=== PATIENT | male | born 1985 | race African-American/Black ===

== ENCOUNTER 2018-06-10 05:58 | Day surgery (SDC) | payer OTHER ==
[~2018-06-10] VITALS: Ht 188 cm; Wt 93.0 kg
--- NOTE | ~2018-06-10 | OP ---
PATIENT NAME: NALDO GONZALEZ MEDICAL RECORD: [id number] [facility]: SURGEON: CLAUDIA ALLISON MD DATE OF OPERATION: 06/10/2018 PREOPERATIVE DIAGNOSIS: Symptomatic reducible right inguinal hernia. POSTOPERATIVE DIAGNOSIS: Symptomatic reducible right indirect inguinal hernia. PROCEDURE: Open right indirect inguinal hernia, reducible, with bilayered polypropylene mesh. SURGEON: Claudia Allison MD GOVERNMENT AFFAIRS MANAGER: None. BLOOD LOSS: Minimal. ANESTHESIA: General. COMPLICATIONS: None. The risks, possible complications and alternatives to the procedure were explained to the patient. He elects to proceed. The discussion specifically included, but was not limited to, bleeding requiring an emergency reoperation, pseudo sac hematoma or seroma formation, chronic pain, hernia recurrence, mesh infection. OPERATIVE COURSE: The patient was conveyed to the operating room electively on 06/10/2018. General anesthesia was induced by the anesthesia staff. General anesthesia was induced by the anesthesia staff. The abdomen and genitals were sterilely prepped and draped. A transverse incision was accomplished in the right groin. Sharp dissection was carried down through skin and subcutaneous tissue as well as Harsha fascia. The external oblique aponeurosis was then incised along the direction of its fibers. I bluntly dissected down through the internal oblique and transversus abdominis muscles. A preperitoneal pocket was fashioned bluntly. There was no direct component. No femoral component. An indirect hernia was reduced in its entirety. I entered the hernia sac. There was no sliding component. I ligated the sac highly with a pursestring 3-0 Vicryl suture. I then transected the sac distal to this. I then cut 2 ovals out of a polypropylene mesh. The 2 ovals were sutured together one on top of the other with a running #1 Surgidac. The mesh was placed in the preperitoneal space. Once I was satisfied with placement of the mesh, I allowed the muscular layers to come together over the mesh. The internal oblique and transversus abdominis muscle layers were then approximated with multiple interrupted horizontal mattress 0 surgidacs incorporating a portion of the underlying mesh. The external oblique aponeurosis was closed with running #1 Vicryls. Harsha fascia was approximated with interrupted 3-0 Vicryl. The subdermis was approximated with interrupted 3-0 Vicryls. The skin was approximated with a running intracuticular 4-0 Vicryl. Benzoin and Steri-Strips were applied. The patient was then extubated and conveyed to the post-anesthesia care unit where he was in stable condition. He will be dismissed back to senior living with a OPERATIVE REPORT [id number] NALDO GONZALEZ prescription for Harvey. He can see me on a p.r.n. basis. There is no need for the patient to see me in the office unless he develops a complication related to this operative procedure. He should do no lifting or straining for 3 weeks. Nothing heavier than a gallon of milk. He can then start increasing his level of activity. He needs to let pain be his guide. If it hurts to do something, he needs to stop. TRANSINT:[id number] Voice Confirmation ID: [id number] DOCUMENT ID: [id number] CLAUDIA ALLISON MD at 1240 CC: [id number] DICTATION DATE: 06/10/18 1037 POLISH COMPOUNDER: 06/10/18 1109 [facility] 06/10/[address] [id number]
[2018-06-10 06:25] VITALS: BP 154/90; Ht 188 cm; Wt 93.0 kg
== END 2018-06-10 12:10 | disposition home or self-care (01) ==
LOC: D.OPS 05:58
DX: K40.90 Unilateral inguinal hernia, without obstruction or gangrene, not specified as recurrent (principal); Z01.812 Encounter for preprocedural laboratory examination